=== PATIENT | female | born 1960 | race Caucasian/White ===

== ENCOUNTER → 2019-11-27 | Outpatient (CLI) | payer BC, OTHER | LOC: RAD 07:52 | DX: Z12.31 Encounter for screening mammogram for malignant neoplasm of breast (principal) | CPT/HCPCS: 77063; 77067 ==

== ENCOUNTER → 2021-02-13 | Outpatient (CLI) | payer BC | LOC: WOUNDCARE 14:00 | PROVIDERS: ATTEND Surgery | DX: I87.331 Chronic venous hypertension (idiopathic) with ulcer and inflammation of right lower extremity (principal); L97.212 Non-pressure chronic ulcer of right calf with fat layer exposed; L97.312 Non-pressure chronic ulcer of right ankle with fat layer exposed; I89.0 Lymphedema, not elsewhere classified | CPT/HCPCS: 29581; G0463 ==

== ENCOUNTER → 2021-02-17 | Outpatient (CLI) | payer BC | LOC: WOUNDCARE 15:10 | PROVIDERS: ATTEND Surgery | DX: I87.331 Chronic venous hypertension (idiopathic) with ulcer and inflammation of right lower extremity (principal); I96 Gangrene, not elsewhere classified; L97.212 Non-pressure chronic ulcer of right calf with fat layer exposed; L97.312 Non-pressure chronic ulcer of right ankle with fat layer exposed; I89.0 Lymphedema, not elsewhere classified | CPT/HCPCS: 11042; G0463 ==

== ENCOUNTER → 2021-02-19 | Outpatient (CLI) | payer BC | LOC: WOUNDCARE 10:10 | PROVIDERS: ATTEND Surgery | DX: I87.331 Chronic venous hypertension (idiopathic) with ulcer and inflammation of right lower extremity (principal) | CPT/HCPCS: 29581; G0463 ==

== ENCOUNTER → 2021-02-24 | Outpatient (CLI) | payer BC | LOC: WOUNDCARE 15:28 | PROVIDERS: ATTEND Surgery | DX: I87.331 Chronic venous hypertension (idiopathic) with ulcer and inflammation of right lower extremity (principal); L97.312 Non-pressure chronic ulcer of right ankle with fat layer exposed; L97.212 Non-pressure chronic ulcer of right calf with fat layer exposed; I89.0 Lymphedema, not elsewhere classified; I96 Gangrene, not elsewhere classified | CPT/HCPCS: 29581; G0463 ==

== ENCOUNTER → 2021-03-03 | Outpatient (CLI) | payer BC | LOC: WOUNDCARE 15:17 | PROVIDERS: ATTEND Family Medicine | DX: I87.331 Chronic venous hypertension (idiopathic) with ulcer and inflammation of right lower extremity (principal); I96 Gangrene, not elsewhere classified; L97.312 Non-pressure chronic ulcer of right ankle with fat layer exposed; L97.212 Non-pressure chronic ulcer of right calf with fat layer exposed; I89.0 Lymphedema, not elsewhere classified | CPT/HCPCS: 29581; G0463 ==

== ENCOUNTER → 2021-03-10 | Outpatient (CLI) | payer BC | LOC: WOUNDCARE 15:23 | PROVIDERS: ATTEND Family Medicine | DX: I87.331 Chronic venous hypertension (idiopathic) with ulcer and inflammation of right lower extremity (principal); L97.312 Non-pressure chronic ulcer of right ankle with fat layer exposed; L97.212 Non-pressure chronic ulcer of right calf with fat layer exposed; I89.0 Lymphedema, not elsewhere classified | CPT/HCPCS: 29581; G0463 ==

== ENCOUNTER → 2021-03-17 | Outpatient (CLI) | payer BC | LOC: WOUNDCARE 15:15 | PROVIDERS: ATTEND Family Medicine | DX: I87.331 Chronic venous hypertension (idiopathic) with ulcer and inflammation of right lower extremity (principal); L97.312 Non-pressure chronic ulcer of right ankle with fat layer exposed; L97.212 Non-pressure chronic ulcer of right calf with fat layer exposed; I89.0 Lymphedema, not elsewhere classified; I96 Gangrene, not elsewhere classified | CPT/HCPCS: 29581; G0463 ==

== ENCOUNTER → 2021-03-24 | Outpatient (CLI) | payer BC | LOC: WOUNDCARE 14:24 | PROVIDERS: ATTEND Family Medicine | DX: I87.331 Chronic venous hypertension (idiopathic) with ulcer and inflammation of right lower extremity (principal); L97.312 Non-pressure chronic ulcer of right ankle with fat layer exposed; L97.212 Non-pressure chronic ulcer of right calf with fat layer exposed; I89.0 Lymphedema, not elsewhere classified | CPT/HCPCS: 29581; G0463 ==

== ENCOUNTER → 2021-03-31 | Outpatient (CLI) | payer BC | LOC: WOUNDCARE 14:29 | PROVIDERS: ATTEND Family Medicine | DX: L97.312 Non-pressure chronic ulcer of right ankle with fat layer exposed (principal) | CPT/HCPCS: 29581; G0463 ==

== ENCOUNTER → 2021-04-07 | Outpatient (CLI) | payer BC | LOC: WOUNDCARE 14:33 | PROVIDERS: ATTEND Family Medicine | DX: I87.331 Chronic venous hypertension (idiopathic) with ulcer and inflammation of right lower extremity (principal); L97.312 Non-pressure chronic ulcer of right ankle with fat layer exposed; L97.212 Non-pressure chronic ulcer of right calf with fat layer exposed; I89.0 Lymphedema, not elsewhere classified; I96 Gangrene, not elsewhere classified | CPT/HCPCS: 29581; G0463 ==

== ENCOUNTER → 2021-04-21 | Outpatient (CLI) | payer BC | LOC: WOUNDCARE 14:17 | PROVIDERS: ATTEND Family Medicine | DX: I87.331 Chronic venous hypertension (idiopathic) with ulcer and inflammation of right lower extremity (principal); I96 Gangrene, not elsewhere classified; L97.312 Non-pressure chronic ulcer of right ankle with fat layer exposed; L97.212 Non-pressure chronic ulcer of right calf with fat layer exposed; L03.115 Cellulitis of right lower limb | CPT/HCPCS: 29581; A6234; G0463 ==

== ENCOUNTER → 2021-04-25 | Outpatient (CLI) | payer BC | LOC: WOUNDCARE 08:15 | PROVIDERS: ATTEND Family Medicine | DX: L97.312 Non-pressure chronic ulcer of right ankle with fat layer exposed (principal) | CPT/HCPCS: 29581; A6234; G0463 ==

== ENCOUNTER → 2021-04-28 | Outpatient (CLI) | payer BC | LOC: WOUNDCARE 15:05 | PROVIDERS: ATTEND Family Medicine | DX: I87.331 Chronic venous hypertension (idiopathic) with ulcer and inflammation of right lower extremity (principal); L97.312 Non-pressure chronic ulcer of right ankle with fat layer exposed; L97.212 Non-pressure chronic ulcer of right calf with fat layer exposed; I89.0 Lymphedema, not elsewhere classified; I96 Gangrene, not elsewhere classified | CPT/HCPCS: 29581; A6234; G0463 ==

== ENCOUNTER → 2021-05-05 | Outpatient (CLI) | payer BC | LOC: WOUNDCARE 14:54 | PROVIDERS: ATTEND Family Medicine | DX: I87.331 Chronic venous hypertension (idiopathic) with ulcer and inflammation of right lower extremity (principal); L97.312 Non-pressure chronic ulcer of right ankle with fat layer exposed; L97.212 Non-pressure chronic ulcer of right calf with fat layer exposed; I89.0 Lymphedema, not elsewhere classified; I96 Gangrene, not elsewhere classified | CPT/HCPCS: 11042; G0463 ==

== ENCOUNTER → 2021-05-12 | Outpatient (CLI) | payer BC | LOC: WOUNDCARE 14:16 | PROVIDERS: ATTEND Family Medicine | DX: I87.331 Chronic venous hypertension (idiopathic) with ulcer and inflammation of right lower extremity (principal); L97.312 Non-pressure chronic ulcer of right ankle with fat layer exposed; L97.212 Non-pressure chronic ulcer of right calf with fat layer exposed; I89.0 Lymphedema, not elsewhere classified; I96 Gangrene, not elsewhere classified | CPT/HCPCS: A6197; G0463; 99213 ==

== ENCOUNTER → 2021-05-19 | Outpatient (CLI) | payer BC | LOC: WOUNDCARE 14:26 | PROVIDERS: ATTEND Family Medicine | DX: I96 Gangrene, not elsewhere classified (principal); I89.0 Lymphedema, not elsewhere classified; I87.331 Chronic venous hypertension (idiopathic) with ulcer and inflammation of right lower extremity; L97.312 Non-pressure chronic ulcer of right ankle with fat layer exposed; L97.212 Non-pressure chronic ulcer of right calf with fat layer exposed | CPT/HCPCS: A6197; G0463; 99213 ==

== ENCOUNTER → 2021-06-02 | Outpatient (CLI) | payer BC | LOC: WOUNDCARE 14:25 | PROVIDERS: ATTEND Family Medicine | DX: I87.331 Chronic venous hypertension (idiopathic) with ulcer and inflammation of right lower extremity (principal); L97.312 Non-pressure chronic ulcer of right ankle with fat layer exposed; L97.212 Non-pressure chronic ulcer of right calf with fat layer exposed; I89.0 Lymphedema, not elsewhere classified | CPT/HCPCS: 99212 ==

== ENCOUNTER → 2021-07-22 | Outpatient (CLI) | payer BC ==
--- NOTE | 2021-07-22 12:54 | Diagnostic Imaging Report ---
INDICATION: Routine screening. COMPARISON: 11/27/2019. TECHNIQUE: 2D and 3D bilateral screening mammography was performed with CAD. FINDINGS: Both breasts are heterogeneously dense, limiting the sensitivity of mammography. The parenchymal pattern is stable. No mass or malignant-appearing microcalcifications are seen. There are occasional benign calcifications bilaterally. The axillae are unremarkable. IMPRESSION: No mammographic features suspicious for malignancy are identified. ACR BI-RADS Category 2: Benign findings. Result letter will be mailed to the patient. Note: At least 10% of breast cancer is not imaged by mammography. Dictated by: Dictated on workstation # [id number]
== END ==
LOC: RAD 09:00
PROVIDERS: ATTEND Nurse Practitioner Family
DX: Z12.31 Encounter for screening mammogram for malignant neoplasm of breast (principal)
CPT/HCPCS: 77063; 77067

== ENCOUNTER → 2021-07-29 | Outpatient (CLI) | payer BC ==
--- NOTE | 2021-07-29 17:48 | Diagnostic Imaging Report ---
PROCEDURE: US Thyroid. TECHNIQUE: Multiple real-time grayscale images were obtained of the thyroid in various projections. INDICATION: Abnormal thyroid function studies. FINDINGS: The right thyroid lobe is 4.5 x 1.7 x 1.8 cm. The left thyroid lobe is 3.7 x 1.3 x 1.7 cm. Both lobes show substantial diffuse heterogeneity of the parenchyma. There does appear to be a tiny 5 mm well-defined hyperechoic solid nodule in the left thyroid lobe. No dominant or suspicious mass. No calcifications. The isthmus is nonfocal. There was no abnormal color Doppler blood flow. IMPRESSION: Heterogeneous thyroidal parenchymal echotexture with a tiny benign TI-RADS 3 5 mm hyperechoic left lobe lesion requiring no further workup. No suspicious mass or abnormal color Doppler blood flow. Dictated by: Dictated on workstation # [id number]
== END ==
LOC: RAD 08:00
PROVIDERS: ATTEND Nurse Practitioner Family
DX: R94.6 Abnormal results of thyroid function studies (principal)
CPT/HCPCS: 76536

== ENCOUNTER → 2021-08-21 | Outpatient (CLI) | payer BC ==
--- NOTE | 2021-08-21 13:44 | Diagnostic Imaging Report ---
PROCEDURE: US carotid duplex, bilateral. TECHNIQUE: Multiple real-time grayscale images were obtained over the carotid arteries in various projections, bilaterally. Additional spectral analysis and color Doppler duplex images were also obtained. INDICATION: Dizziness. Parameters based on the consensus panel Hansen-Scale and Doppler ultrasound criteria published March 2003, Radiology, Volume 229. DOPPLER (peak systolic velocity M/S Right Left CCA .81 .81 ICA Proximal .53 .62 ICA Mid .70 .77 ICA Distal .73 .67 RATIO .90 .95 ECA .80 .52 VERT .46 .29 No significant plaque is seen. Waveforms are normal. Normal antegrade flow within the bilateral vertebral arteries. IMPRESSION: No hemodynamically significant stenosis of the bilateral internal carotid arteries by velocity or ratio criteria. Dictated by: Dictated on workstation # [id number]
== END ==
LOC: RAD 12:45
PROVIDERS: ATTEND Nurse Practitioner Family
DX: R42 Dizziness and giddiness (principal)
CPT/HCPCS: 93880

== ENCOUNTER → 2021-09-16 | Outpatient (CLI) | payer BC ==
--- NOTE | 2021-09-16 12:19 | Diagnostic Imaging Report ---
INDICATION: Cough and congestion. TIME OF EXAM: 10:56 AM No prior studies are available for comparison. FINDINGS: Heart size normal. There is some patchy infiltrate in the right mid to lower lung field. Left lung is clear. There is no effusion or pneumothorax. IMPRESSION: Right-sided infiltrate suggestive of pneumonia. Dictated by: Dictated on workstation # [id number]
== END ==
LOC: RAD 10:21
PROVIDERS: ATTEND Nurse Practitioner Family
DX: R05.9 Cough, unspecified (principal); R09.81 Nasal congestion
CPT/HCPCS: 71046

== ENCOUNTER 2022-08-24 16:08 | Emergency (ER) | payer BC ==
[~2022-08-24] VITALS: Ht 175 cm; Wt 85.2 kg
--- NOTE | 2022-08-24 17:02 | ED General ---
General Chief Complaint: Cardiac/General Problems Stated Complaint: SAMUEL RATE IS HIGH Nursing Triage Note: PT AMB TO [facility] WITH C/O "FEELING OFF" AND SENT FROM PCP FOR ELEVATED HEART RATE. PT AT WORK WHEN THIS FEELING. HR 140-[address] DELEON OFFICE Source of Information: Patient Exam Limitations: No Limitations History of Present Illness Date Seen by Provider: Aug 24, 2022 Time Seen by Provider: 16:31 Initial Comments This 62-year-old woman presents to the emergency room with complaints of tachycardia and a generalized feeling of being "off" and lightheaded. She felt clammy and lightheaded as well. She is normally very active and works multiple jobs. She denies SOA, chest pain, nausea, vomiting, or urine changes. She has noted prior brief episodes of similar symptoms and has sometimes been able to abort them with deep breathing. She has never been diagnosed with any arrhythmia. On the case monitor she has a narrow complex regular tachycardia in the 130-135 range. Symptoms started yesterday and seem to disrupt sleep. She was seen in the clinic today and referred to the emergency room because of the persistent tachycardia. Allergies and Home Medications Allergies Coded Allergies: No Known Drug Allergies (Unverified , 08/24/22) Patient Home Medication List Home Medication List Reviewed: Yes Review of Systems Review of Systems Constitutional: see HPI EENTM: no symptoms reported Respiratory: no symptoms reported Cardiovascular: see HPI Gastrointestinal: no symptoms reported Genitourinary: no symptoms reported : No Musculoskeletal: no symptoms reported Skin: no symptoms reported Psychiatric/Neurological: See HPI Hematologic/Lymphatic: No Symptoms Reported Immunological/Allergic: no symptoms reported Past Jxhklim-Lgoghg-Kqcnmb Hx Patient Social History Tobacco Use?: No Use of E-Cig and/or Vaping dev: No Substance use?: No Alcohol Use?: Yes Alcohol Frequency: Rarely Pt feels they are or have been: No Immunizations Up To Date Influenza Vaccine Up-to-Date: No; Not Current First/Initial COVID19 Vaccinat: X1 Past Medical History Surgery/Hospitalization HX: THYROID TUBAL, D&C X3 Surgeries: Yes (D&C) Tubal Ligation Respiratory: No Cardiac: No Neurological: No : No Reproductive Disorders: No Genitourinary: No Gastrointestinal: No Musculoskeletal: No Endocrine: Yes Hypothyroidsim HEENT: No Cancer: No Physical Exam Vital Signs Vital Signs - First Documented 08/24/22 16:14 Temp 36.7 Pulse 148 Resp 18 B/P (MAP) 122/68 (86) Pulse Ox 100 O2 Delivery Room Air Capillary Refill : Height, Weight, BMI Height: '" Weight: lbs. oz. kg; 27.00 BMI Method: General Appearance: No Apparent Distress, WD/WN HEENT: PERRL/EOMI, Normal ENT Inspection Neck: Normal Inspection; No JVD Respiratory: Lungs Clear, Normal Breath Sounds, No Accessory Muscle Use Cardiovascular: No Edema, No Murmur, Tachycardia (Regular. Narrow complex regular tachycardia on case monitor consistent with atrial tachycardia such as atrial flutter or SVT.) Gastrointestinal: Non Tender, Soft Extremity: Normal Inspection, No Pedal Edema Neurologic/Psychiatric: Alert, Oriented x3, No Motor/Sensory Deficits, Normal Mood/Affect Skin: Normal Color, Warm/Dry Progress/Results/Core Measures Suspected Sepsis SIRS Temperature: Pulse: 148 Respiratory Rate: 18 Laboratory Tests 08/24/22 16:25: White Blood Count 4.8 Blood Pressure 122 /68 Mean: 86 Laboratory Tests 08/24/22 16:25: Creatinine 0.83, Platelet Count 149, Total Bilirubin 0.6 Results/Orders Lab Results Laboratory Tests Test 08/24/22 16:25 Range/Units White Blood Count 4.8 4.3-11.0 10^3/uL Red Blood Count 4.80 3.80-5.11 10^6/uL Hemoglobin 12.9 11.5-16.0 g/dL Hematocrit 40 35-52 % Mean Corpuscular Volume 84 80-99 fL Mean Corpuscular Hemoglobin 27 25-34 pg Mean Corpuscular Hemoglobin Concent 32 32-36 g/dL Red Cell Distribution Width 14.4 10.0-14.5 % Platelet Count 149 130-400 10^3/uL Mean Platelet Volume 9.3 9.0-12.2 fL Immature Granulocyte % (Auto) 0 % Neutrophils (%) (Auto) 66 42-75 % Lymphocytes (%) (Auto) 26 12-44 % Monocytes (%) (Auto) 7 0-12 % Eosinophils (%) (Auto) 0 0-10 % Basophils (%) (Auto) 0 0-10 % Neutrophils # (Auto) 3.2 1.8-7.8 10^3/uL Lymphocytes # (Auto) 1.3 1.0-4.0 10^3/uL Monocytes # (Auto) 0.4 0.0-1.0 10^3/uL Eosinophils # (Auto) 0.0 0.0-0.3 10^3/uL Basophils # (Auto) 0.0 0.0-0.1 10^3/uL Immature Granulocyte # (Auto) 0.0 0.0-0.1 10^3/uL Sodium Level 135 135-145 MMOL/L Potassium Level 3.6 3.6-5.0 MMOL/L Chloride Level 101 98-107 MMOL/L Carbon Dioxide Level 25 21-32 MMOL/L Anion Gap 9 5-14 MMOL/L Blood Urea Nitrogen 15 7-18 MG/DL Creatinine 0.83 0.60-1.30 MG/DL Estimat Glomerular Filtration Rate 80 BUN/Creatinine Ratio 18 Glucose Level 101 70-105 MG/DL Calcium Level 9.4 8.5-10.1 MG/DL Corrected Calcium 9.2 8.5-10.1 MG/DL Magnesium Level 2.2 1.6-2.4 MG/DL Total Bilirubin 0.6 0.1-1.0 MG/DL Aspartate Amino Transf (AST/SGOT) 18 5-34 U/L Alanine Aminotransferase (ALT/SGPT) 20 0-55 U/L Alkaline Phosphatase 70 40-136 U/L Total Protein 8.9 H 6.4-8.2 GM/DL Albumin 4.3 3.2-4.5 GM/DL Thyroid Stimulating Hormone (TSH) 1.54 0.35-4.94 UIU/ML Free Thyroxine 1.20 0.70-1.48 NG/DL My Orders Orders - MARLYN CHRISTIANSEN MD Ekg Tracing (08/24/22 16:11) Monitor-Rhythm Ecg Trace Only (08/24/22 16:31) Cbc With Automated Diff (08/24/22 17:00) Comprehensive Metabolic Panel (08/24/22 17:00) Magnesium (08/24/22 17:00) Ed Iv/Invasive Line Start (08/24/22 17:00) Thyroid Stimulating Hormone (08/24/22 17:14) Free T4 (Free Thyroxine) (08/24/22 17:14) Ekg Tracing (08/24/22 17:15) Aspirin Tablet (Aspirin Tablet) (08/24/22 18:30) Medications Given in ED Vital Signs/I&O 08/24/22 08/24/22 16:14 18:40 Temp 36.7 Pulse 148 73 Resp 18 14 B/P (MAP) 122/68 (86) 98/56 Pulse Ox 100 99 O2 Delivery Room Air Room Air Capillary Refill : Blood Pressure Mean: 86 Progress Note : Progress Note Patient was interviewed and examined. During examination she was asked to perform Valsalva x2. This did not convert her rhythm. However, while exercising deep breathing during chest auscultation, rhythm spontaneously converted to normal sinus rhythm with a rate in the 80s. Atrial flutter could not be definitively ruled out based on EKG. Patient's [id number] 2 score was calculated at 1. Therefore, aspirin alone was recommended at this time. She is being advised to follow-up with a hop trainer as well as obtain outpatient cardiac monitoring. Labs were reviewed and interpreted in their entirety including CBC, CMP, magnesium, and thyroid studies. There were no significant abnormalities appreciated by my interpretation. ECG Initial ECG Impression Date: Aug 24, 2022 Initial ECG Impression Time: 16:19 Initial ECG Rate: 135 Comment Regular tachycardia, likely atrial tachycardia, SVT versus atrial flutter. No ST elevation or depression. No abnormal intervals or axis deviation. EKG : EKG Time: 17:33 Rate: 76 Rhythm: Normal Sinus Intervals: Normal ECG Impression: Normal Comment Normal sinus rhythm with no ST elevation or depression. Automated read notes left anterior fascicular block. No axis deviation. This EKG represents a conversion to sinus rhythm from an atrial tachycardia. Departure Impression Primary Impression: Atrial tachycardia Additional Impression: Hypothyroidism Qualified Codes: E03.9 - Hypothyroidism, unspecified Disposition: 01 HOME, SELF-CARE Condition: Improved Departure-Patient Inst. Decision time for Depature: 18:28 Referrals: MICHAEL DWYER MD FACP FAC KYARAS KELLY FELIX MD, JOHN D MD (PCP/Family) Primary Care Physician Patient Instructions: Atrial Flutter, Supraventricular Tachycardia (SVT) Add. Discharge Instructions: You experienced a regular tachycardia (rapid heart rate) today that resolved on its own. This rhythm may be SVT (supraventricular tachycardia), atrial flutter, or some other type of atrial tachycardia. See information attached for more details. Follow-up with your primary care provider and a hop trainer as soon as possible. Contact information for the local cardiologists is below. If you have recurrent episodes that do not resolve with Valsalva maneuver (bearing down, taking deep breaths, breathing through a straw, etc.) you may try briefly placing a bag of ice across your face. If these maneuvers do not stop the rapid heart rate, please return to the emergency room. Also return to the emergency room if you have rapid heart rate that is associated with other symptoms such as significant lightheadedness, shortness of breath, chest pain, vomiting, etc. Drink plenty of clear liquids to stay well-hydrated. Take aspirin 81 mg daily until otherwise instructed. All discharge instructions reviewed with patient and/or family. Voiced understanding. Work/School Note: Work Release Form Date Seen in the Emergency Department: Aug 24, 2022 Return to Work: Aug 25, 2022 Other Restrictions Listed Below: Return to emergency room if uncontrolled rapid heart rate returns. Copy Copies To 1: TRACY HOLCOMB MD, JOSHUA T MD Aug 24, 2022 17:02
[2022-08-24 17:07] LABS: BASOPHILS % (AUTO) 0 % (0-10); EOSINOPHILS % (AUTO) 0 % (0-10); HEMATOCRIT 40 % (35-52); HEMOGLOBIN 12.9 g/dL (11.5-16.0); LYMPHOCYTES # (AUTO) 1.3 10^3/uL (1.0-4.0); LYMPHOCYTES % (AUTO) 26 % (12-44); MEAN CORPUSCULAR HEMOGLOBIN 27 pg (25-34); MEAN CORPUSCULAR HGB CONC 32 g/dL (32-36); MEAN CORPUSCULAR VOLUME 84 fL (80-99); MEAN PLATELET VOLUME 9.3 fL (9.0-12.2); MONOCYTES # (AUTO) 0.4 10^3/uL (0.0-1.0); MONOCYTES % (AUTO) 7 % (0-12); NEUTROPHILS # (AUTO) 3.2 10^3/uL (1.8-7.8); NEUTROPHILS % (AUTO) 66 % (42-75); PLATELET COUNT 149 10^3/uL (130-400); WHITE BLOOD COUNT 4.8 10^3/uL (4.3-11.0)
[2022-08-24 17:11] LABS: ALBUMIN 4.3 GM/DL (3.2-4.5)
[2022-08-24 17:12] LABS: POTASSIUM 3.6 MMOL/L (3.6-5.0)
[2022-08-24 17:13] LABS: CALCIUM 9.4 MG/DL (8.5-10.1)
[2022-08-24 17:14] LABS: TOTAL PROTEIN 8.9 GM/DL (6.4-8.2)
[2022-08-24 17:16] LABS: BILIRUBIN,TOTAL 0.6 MG/DL (0.1-1.0)
[2022-08-24 17:17] LABS: CREATININE SERUM 0.83 MG/DL (0.60-1.30)
[2022-08-24 17:20] LABS: MAGNESIUM 2.2 MG/DL (1.6-2.4)
[2022-08-24 18:10] LABS: FREE T4 (FREE THYROXINE) 1.2 NG/DL (0.70-1.48)
[2022-08-24] MEDS ORDERED: ASPIRIN 325 MG (5 GR) TABLET PO ONE (18:30)
[2022-08-24 18:40] VITALS: BP 98/56
== END 2022-08-24 18:40 | disposition home or self-care (01) ==
LOC: EDUNIT# 16:08 → ER 16:11
DX: I47.1 Supraventricular tachycardia (principal); E03.9 Hypothyroidism, unspecified; I44.4 Left anterior fascicular block; Z28.311 Partially vaccinated for COVID-19
CPT/HCPCS: 36415; 80053; 83735; 84439; 84443; 85025; 93005; 93041

== ENCOUNTER → 2022-10-15 | Outpatient (CLI) | payer BC | LOC: CARD 12:45 | PROVIDERS: ATTEND Internal Medicine Cardiovascular Disease | DX: I35.1 Nonrheumatic aortic (valve) insufficiency (principal); I47.1 Supraventricular tachycardia | CPT/HCPCS: 93306 ==

== ENCOUNTER → 2022-11-24 | Outpatient (CLI) | payer BC ==
[~2022-11-24] VITALS: Ht 175 cm; Wt 86.0 kg
[~2022-11-24] MED LIST: CATHETER FLUSH 10 ML SYR IVP PRN; REGADENOSON 0.4 MG/5 ML SYR (LEXISCAN) IV ONE
--- NOTE | 2022-11-25 12:47 | STRESS TEST ---
DATE OF SERVICE: 11/24/2022 RESTING AND POST REGADENOSON TECHNETIUM-99M TETROFOSMIN SPECT CT IMAGING CLINICAL DIAGNOSIS: Supraventricular tachycardia. Baseline images were carried out after injection of 10.78 mCi of technetium-99m tetrofosmin. This was followed by 0.4 mg regadenoson and 32.5 mCi of technetium-99m tetrofosmin for stress imaging. The electrocardiogram showed sinus rhythm at baseline. It did not change significantly with regadenoson infusion. Review of images at rest and following stress does not indicate any distinct perfusion defects consistent with significant myocardial ischemia or infarction. Gated images showed normal global left ventricular systolic function with normal regional wall motion. Left ventricular ejection fraction is calculated to be 62%. Left ventricular end-diastolic volume is 64 mL. TID is absent (1.04). CONCLUSIONS: 1. No evidence of any significant myocardial ischemia or infarction on the study. 2. Normal regional wall motion. 3. Normal global left ventricular systolic function with a calculated ejection fraction of 62%. Job ID: [id number] DocumentID: [id number] Dictated Date: 11/25/2022 10:04:19 Storage Solutions Architect Date: 11/25/2022 12:45:00 Dictated By: MICHAEL DWYER MD; JESSICA; FACP; FACC;
== END ==
LOC: CARD 07:04
PROVIDERS: ATTEND Internal Medicine Cardiovascular Disease
DX: I47.1 Supraventricular tachycardia (principal)
CPT/HCPCS: 78452; 93017; A9502